=== PATIENT | female | born 1965 | race African-American/Black ===

== ENCOUNTER 2017-12-30 21:15 | Emergency (ER) | payer BC, OTHER ==
[~2017-12-30] VITALS: Ht 170.2 cm; Wt 81.7 kg
--- NOTE | ~2017-12-30 | EKG ---
[address] [address] ELECTROCARDIOGRAM REPORT Name: JONATHON RUEDA Room #: [facility]#: [id number] Admission: 12/30/17 Attend Phys: Discharge: 12/30/17 Date of : 61 Report #: [id number] THIS REPORT FOR: //name// [facility] ED Test Date: 2017-12-30 Test Time: 22:34:48 Pat Name: JONATHON BARILLAS Department: Room: Gender: F [place]: REJI : 1965 Requested By: Inge Carr Order Number: [id number] MD: Rogers Smith Measurements Intervals [place] Rate: 63 P: 18 MI: 133 QRS: 72 QRSD: 80 T: 49 QT: 458 QTc: 469 Interpretive Statements Sinus rhythm Abnormal R-wave progression, early transition No previous ECG available for comparison Electronically Signed On 12-31-2017 8:26:56 CDT by Rogers Smith [email or web address] <ELECTRONICALLY SIGNED> By: Rogers Smith MD, [facility] 12/31/17 0826 [id number] Rogers Smith MD, FACC /EPI
[2017-12-30 22:51] LABS: HEMATOCRIT 33.2 % (37.0-47.0); HEMOGLOBIN 11.1 gm/dL (12.0-15.0); MCH 31.9 pg (26.0-34.0); MCHC 33.5 g/dL (28.0-37.0); MCV 95.2 fL (80.0-100.0); RBC 3.49 mil/uL (4.20-5.00); RDW 12.5 % (10.5-14.5)
[2017-12-30 22:59] LABS: ANION GAP 5 mmol/L (7-16); BUN 17 mg/dL (7-18); CALCIUM 8.9 mg/dL (8.5-10.1); CHLORIDE 106 mmol/L (98-107); CO2 30 mmol/L (21-32); CREATININE 0.9 mg/dL (0.6-1.0); GLUCOSE 95 mg/dL (74-106); POTASSIUM 3.5 mmol/L (3.5-5.1); SODIUM 141 mmol/L (136-145)
[2017-12-30 23:07] LABS: ALBUMIN 3.4 g/dL (3.4-5.0); SGOT 33 U/L (15-37); SGPT 53 U/L (30-65); TOTAL BILIRUBIN 0.3 mg/dL (<0.1-1.0); TOTAL PROTEIN 6.6 g/dL (6.4-8.2); TROPONIN-I < 0.04 ng/mL (<0.06)
[2017-12-30 23:38] VITALS: BP 125/68
== END 2017-12-30 23:46 | disposition home or self-care (01) ==
LOC: ER 21:15
PROVIDERS: Physician Assistant
DX: R06.00 Dyspnea, unspecified (principal); R06.02 Shortness of breath

== ENCOUNTER → 2019-07-24 | Outpatient (CLI) | payer BC, OTHER | LOC: HYPER 07-17 15:27 | DX: I83.218 Varicose veins of right lower extremity with both ulcer of other part of lower extremity and inflammation (principal); L97.811 Non-pressure chronic ulcer of other part of right lower leg limited to breakdown of skin; L03.115 Cellulitis of right lower limb; R60.0 Localized edema; I10 Essential (primary) hypertension; Z90.49 Acquired absence of other specified parts of digestive tract ==

== ENCOUNTER → 2019-09-26 | Outpatient (CLI) | payer OTHER | LOC: RAD 16:44 | DX: Z20.818 Contact with and (suspected) exposure to other bacterial communicable diseases (principal) ==